=== PATIENT | male | born 1995 | race Caucasian/White ===

== ENCOUNTER 2022-02-14 08:49 | Emergency (ER) | payer MEDICARE, OTHER ==
[2022-02-14] MEDS ORDERED: ERYTHROMYCIN OP1 GM OP (09:19)
== END 2022-02-14 09:36 | disposition home or self-care (01) ==
LOC: ER1 08:49
DX: H10.9 Unspecified conjunctivitis (principal); F17.210 Nicotine dependence, cigarettes, uncomplicated
CPT/HCPCS: 99283